=== PATIENT | female | born 1990 | race Caucasian/White ===

== ENCOUNTER 2024-11-18 08:18 | Outpatient (CLI) | payer BC | END 2024-11-18 08:19 | disposition home or self-care (01) | LOC: BICULT 08:18 | PROVIDERS: ATTEND Physician Assistant Medical | DX: K64.9 Unspecified hemorrhoids (principal); K62.5 Hemorrhage of anus and rectum; R14.0 Abdominal distension (gaseous); R19.7 Diarrhea, unspecified; R11.0 Nausea; K76.0 Fatty (change of) liver, not elsewhere classified | CPT/HCPCS: 76700 ==